=== PATIENT | male | born 1985 | race Caucasian/White ===

== ENCOUNTER 2017-11-07 17:38 | Emergency (ER) | payer OTHER ==
[~2017-11-07] VITALS: Ht 182.9 cm; Wt 89.0 kg
[~2017-11-07 17:38] MED LIST: CYCL-36 PO; IBUP-238 PO; LORT7.5T3 PO
[2017-11-07 17:52] VITALS: BP 128/71; PULSE 63; RESP 16; TEMP 98.4; O2SAT 96
[2017-11-07] MEDS ORDERED: SUBOXONE PO (18:02)
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
== END 2017-11-07 21:09 | disposition home or self-care (01) ==
LOC: PHEFT 17:38
DX: S29.012A Strain of muscle and tendon of back wall of thorax, initial encounter (principal); R51 Headache; F11.20 Opioid dependence, uncomplicated; R56.9 Unspecified convulsions; V49.59XA Passenger injured in collision with other motor vehicles in traffic accident, initial encounter; Y92.410 Unspecified street and highway as the place of occurrence of the external cause; Z72.0 Tobacco use
CPT/HCPCS: 70450; 72125; 99283